=== PATIENT | female | born 1945 | race Caucasian/White ===

== ENCOUNTER 2017-05-22 18:22 | Observation (INO) ==
[2017-05-22] MEDS ORDERED: Ipratropium/Albuterol Neb 3 ML IH ONE ×2 (18:59→22:07)
--- NOTE | 2017-05-22 19:09 | Emergency Department Note ---
Disposition Clinical Impression: Hypoxia, Shortness of breath Disposition: Admitted As Inpatient Condition: Good Referrals: Medina Larios DO [Primary Care Provider] - Forms: ED Satisfaction Letter SOB HPI - General Chief Complaint: ED Shortness of Breath/Dyspnea Stated Complaint: KRIS Time Seen by Provider: 05/22/17 18:26 Source: patient, EMS Limitations: no limitations Nursing Notes Reviewed: Yes Vital Signs Reviewed: Yes - History of Present Illness Patient presents for evaluation of shortness of breath. Patient was diagnosed with pneumonia one month ago. Patient states that she was given amoxicillin and inhaler with mild improvement. Patient has continued to have some baseline shortness of breath despite treatment. Patient had a procedure performed by podiatry yesterday. Patient states that prior to the surgery she had a chest x- ray done. The chest x-ray was reviewed by the primary care staff and she was called and told to schedule a follow-up appointment to discuss the results. Did not give her the results told her with any worsening shortness of breath to return to the emergency department. Patient states that she was feeling more short of breath after some minimal exertion and presents here today. Her symptoms have been progressively worse over the last month after she was treated with antibiotics and a albuterol inhaler. Patient no longer has the help peter all inhaler at home. Her cough is dry in nature. Nonproductive. Patient has not had fevers or chills. - Related Data Home Medications Medication Instructions Recorded Confirmed Ammonium Lactate [Farzaneh-Hydrolac] 1 appl TP BID 05/21/17 05/22/17 Buspirone HCl [Buspar] 15 mg PO TID 05/21/17 05/22/17 Cholecalciferol (Vitamin D3) 1,000 unit PO DAILY 05/21/17 05/22/17 [Vitamin D] Docusate Sodium [Dok] 100 mg PO DAILY PRN 05/21/17 05/22/17 FLUoxetine HCl [Fluoxetine HCl] 80 mg PO QAM 05/21/17 05/22/17 Fluticasone Propionate Nasal 1 spray NS DAILY 05/21/17 05/22/17 [Flonase] Furosemide [Lasix] 20 mg PO DAILY PRN 05/21/17 05/22/17 Gabapentin [Neurontin] 300 mg PO 0600,1200 05/21/17 05/22/17 Gabapentin [Neurontin] 600 mg PO 2100 05/21/17 05/22/17 LORazepam [Ativan] 0.5 mg PO TID 05/21/17 05/22/17 Lisinopril [Lisinopril] 2.5 mg PO DAILY 05/21/17 05/22/17 Loperamide [Imodium] 2 mg PO TID PRN 05/21/17 05/22/17 Loratadine [Claritin] 10 mg PO DAILY 05/21/17 05/22/17 Rickey/Poly/DEX Opth OINT [Maxitrol 1 appl OP TID 05/21/17 05/22/17 OPTH Oint] Nystatin [Nystatin] 1 appl TP BID 05/21/17 05/22/17 Pantoprazole Sodium 40 mg PO BID 05/21/17 05/22/17 Pentoxifylline [Pentoxifylline] 400 mg PO TID 05/21/17 05/22/17 Potassium Chloride [K-Tab ER] 20 meq PO BID 05/21/17 05/22/17 Promethazine [Phenergan] 25 mg PO BID PRN 05/21/17 05/22/17 Propylene Glycol/Peg 400 [Systane 1 drop OP QID PRN 05/21/17 05/22/17 Ultra 0.4-0.3% Eye Drp] Sodium Chloride [[place] Saline] 1 spr NS Q4H PRN 05/21/17 05/22/17 Triamcinolone Acet 0.1% OINT 1 appl TP BID 05/21/17 05/22/17 [Kenalog] Vitamin B Complex [B Complex] 1 tab PO DAILY 05/21/17 05/22/17 cephALEXin [Keflex] 500 mg PO BID 05/21/17 05/22/17 diazePAM [Valium] 2 mg PO DAILY PRN 05/21/17 05/22/17 predniSONE [PredniSONE] 3 mg PO 0600 05/21/17 05/22/17 risperiDONE [RisperDAL] 3 mg PO 2100 05/21/17 05/22/17 Docusate [Colace] 100 mg PO 0600 05/22/17 05/22/17 Guaifenesin [Mucinex] 600 mg PO BID PRN 05/22/17 05/22/17 Previous Rx's Medication Instructions Recorded HYDROcodone/Acet 5/325 mg [[place] 1 tab PO Q6H PRN #14 tab 05/21/17 5-325 mg] Allergies Allergy/AdvReac Type Severity Reaction Status Date / Time aspirin Allergy Nausea Verified 05/21/17 11:29 levofloxacin [From Levaquin] Allergy Itching Verified 05/21/17 11:29 ibuprofen AdvReac Nausea Verified 05/21/17 11:29 Review of Systems: CONSTITUTIONAL: No weight loss, fever, chills, weakness or fatigue. HEENT: Eyes: No visual changes. Ears, Nose, Throat: No hearing loss, difficulty talking or unable to swallow. SKIN: No rash or itching. CARDIOVASCULAR: No chest pain, chest pressure or chest discomfort. No palpitations or edema. RESPIRATORY: Shortness of breath and cough GASTROINTESTINAL: No anorexia, nausea, vomiting or diarrhea. No abdominal pain or blood. GENITOURINARY: No burning on urination or hematuria. NEUROLOGICAL: No headache, dizziness, syncope, paralysis, ataxia, numbness or tingling in the extremities. No change in bowel or bladder control. MUSCULOSKELETAL: No muscle pain, back pain, joint pain or stiffness. Past Medical History - Past Medical History Medical history: Reports: hyperlipidemia, other Surgical history: Reports: appendectomy, hysterectomy Psychiatric history: Reports: bipolar - Social History Smoking Status: Never smoker Smokeless Tobacco Status: No Alcohol use: Reports: none Drug use: Reports: none Physical Exam General appearance: NAD, conversant Eyes: anicteric sclerae, moist conjunctivae; PERRL HENT: Atraumatic; oropharynx clear with moist mucous membranes and no mucosal ulcerations Neck: Normal inspection; Trachea midline; FROM, supple Lungs: Decreased bilaterally CV: RRR, no MRGs Abdomen: Soft, non-tender; no rebound or gaurding Extremities: No peripheral edema or extremity lymphadenopathy Skin: Normal temperature; no rash, ulcers or lesions Psych: Appropriate mood and affect Neuro: alert and oriented to person, place and time - General Limitations: no limitations General appearance: alert, in no apparent distress Course - Reevaluation(s) Reevaluation #1: Patient was a difficult IV stick. Patient did have an ultrasound IV placed. D- dimer elevated. CTA negative. Patient continues to have respiratory distress with minimal exertion. 90% on room air without oxygen while just resting in bed. The patient will need to be admitted for further evaluation of hypoxia. - Consultations Consultation #1: Case discussed with Dr. Johns. Pt accepted for admission. Vital Signs Temperature 98.9 F 05/22/17 18:25 Pulse Rate 74 05/22/17 18:25 Respiratory Rate 12 05/22/17 18:25 Blood Pressure 141/56 05/22/17 18:25 O2 Sat by Pulse Oximetry 94 05/22/17 18:25 Temperature 98.9 F 05/22/17 18:25 Pulse Rate 76 05/22/17 20:48 Respiratory Rate 18 05/22/17 22:39 Blood Pressure 148/96 05/22/17 20:48 O2 Sat by Pulse Oximetry 95 05/22/17 22:39 Oxygen Delivery Oxygen Delivery Nasal Cannula Shortness of Breath/Dyspnea - Lab Data Result diagrams: 05/22/17 20:29 05/22/17 20:29 Lab Results 05/22/17 05/22/17 05/22/17 Range/Units 20:29 20:29 20:29 WBC 10.1 (4.3-11.1) K/mcL RBC 4.40 (3.82-4.97) M/mcL Hgb 12.7 (11.5-15.4) g/dL Hct 39.4 (35.3-44.9) % MCV 89.5 (83.0-100.0) fL MCH 28.9 (28.0-33.3) pg MCHC 32.2 (31.6-35.5) g/dL RDW 12.6 (11.5-14.5) % Plt Count 169 (140-400) K/mcL MPV 9.3 L (9.4-12.4) fL Immature Gran % 0.4 (0-4) % Seg Neutrophils % 58.8 % Lymphocytes % 31.6 % Monocytes % 7.8 % Eosinophils % 1.1 % Basophils % 0.3 % Neutrophils # 6.0 (1.6-8.9) K/mcL Lymphocytes # 3.2 (0.6-4.6) K/mcL Monocytes # 0.8 (0.0-1.3) K/mcL Eosinophils # 0.1 (0.0-0.6) K/mcL Basophils # 0.0 (0.0-0.2) K/mcL D-Dimer (0-500) ng/mLFEU Sodium 140 (136-145) mEq/L Potassium 4.2 (3.5-4.5) mEq/L Chloride 103 (98-109) mEq/L Carbon Dioxide 28 (19-29) mEq/L BUN 12 (7-20) mg/dL Creatinine 0.83 (0.57-1.11) mg/dL Est GFR ( Amer) > 60 (> 60) Est GFR (Non-Af Amer) > 60 (> 60) BUN/Creatinine Ratio 14 (6-26) Glucose 109 H (70-99) mg/dL Calculated Osmolality 290 (280-300) Calcium 9.4 (8.6-10.8) mg/dL Troponin I 0.01 (0-0.03) ng/mL B-Natriuretic Peptide (0-100) pg/mL 05/22/17 05/22/17 Range/Units 20:29 20:29 WBC (4.3-11.1) K/mcL RBC (3.82-4.97) M/mcL Hgb (11.5-15.4) g/dL Hct (35.3-44.9) % MCV (83.0-100.0) fL MCH (28.0-33.3) pg MCHC (31.6-35.5) g/dL RDW (11.5-14.5) % Plt Count (140-400) K/mcL MPV (9.4-12.4) fL Immature Gran % (0-4) % Seg Neutrophils % % Lymphocytes % % Monocytes % % Eosinophils % % Basophils % % Neutrophils # (1.6-8.9) K/mcL Lymphocytes # (0.6-4.6) K/mcL Monocytes # (0.0-1.3) K/mcL Eosinophils # (0.0-0.6) K/mcL Basophils # (0.0-0.2) K/mcL D-Dimer 863 H (0-500) ng/mLFEU Sodium (136-145) mEq/L Potassium (3.5-4.5) mEq/L Chloride (98-109) mEq/L Carbon Dioxide (19-29) mEq/L BUN (7-20) mg/dL Creatinine (0.57-1.11) mg/dL Est GFR ( Amer) (> 60) Est GFR (Non-Af Amer) (> 60) BUN/Creatinine Ratio (6-26) Glucose (70-99) mg/dL Calculated Osmolality (280-300) Calcium (8.6-10.8) mg/dL Troponin I (0-0.03) ng/mL B-Natriuretic Peptide 17 (0-100) pg/mL Attestation Statement - Attestation Attestation: I, Daniel Drew DO, examined this patient [id number] and my medical decision-making was reviewed with Dr. Richar Hart, Resident Physician. I agree with the documented findings, disposition and treatment plan as described except to the extent set forth below. Please see my progress notes for details. 72-year-old female presents emergency room from home with increased work of breathing shortness of breath and oxygen requirement. Patient had foot surgery performed yesterday and since then has had persistently worsening shortness of breath. Patient does not have any acute signs of respiratory failure. She is using oxygen at this time of stabilization the pulse ox but does feel better with oxygen, typically she does not require this. Vital signs otherwise unremarkable except for borderline tachycardia. Lungs are clear heart is regular abdomen is soft nontender nondistended with no guarding no rigidity. Lower extremities do not show any acute signs of pitting edema. Right foot is in a boot at this time it has been less than 24 hours. No acute signs of redness or irritation. Low clinical concern for deep venous thrombosis, pneumonia, pulmonary infiltrate or infection this point. There is concern for possibility of pulmonary emboli versus other underlying etiology. Patient was contacted from the PCPs office today saying that she had something abnormal on the chest x-ray need to come the emergency room for evaluation. No other concerns or issues noted this time. Patient is otherwise stable. See detailed documentation of physical exam, medical intervention, medical decision-making and disposition of the resident physician's note.
[2017-05-22 20:39] LABS: Basophils % 0.3 %; Eosinophils # 0.1 K/mcL (0.0-0.6); Eosinophils % 1.1 %; Hematocrit 39.4 % (35.3-44.9); Hemoglobin 12.7 g/dL (11.5-15.4); Immature Granulocytes % 0.4 % (0-4); Lymphocytes # 3.2 K/mcL (0.6-4.6); Lymphocytes % 31.6 %; Mean Corpuscular HGB Conc 32.2 g/dL (31.6-35.5); Mean Corpuscular Hemoglobin 28.9 pg (28.0-33.3); Mean Corpuscular Volume 89.5 fL (83.0-100.0); Mean Platelet Volume 9.3 fL (9.4-12.4); Monocytes # 0.8 K/mcL (0.0-1.3); Monocytes % 7.8 %; Platelet Count 169 K/mcL (140-400); Red Cell Distribution Width 12.6 % (11.5-14.5); Segmented Neutrophils % 58.8 %
[2017-05-22 20:50] LABS: BUN/Creatinine Ratio 14 (6-26); Blood Urea Nitrogen 12 mg/dL (7-20); Calcium 9.4 mg/dL (8.6-10.8); Carbon Dioxide 28 mEq/L (19-29); Chloride 103 mEq/L (98-109); Glucose 109 mg/dL (70-99); Osmolality,Calculated 290 (280-300); Potassium 4.2 mEq/L (3.5-4.5); Sodium 140 mEq/L (136-145); eGFR For African Americans > 60 (> 60); eGFR For Non-African Americans > 60 (> 60)
[2017-05-22] MEDS ORDERED: methylPREDNISolone 125 MG/2 ML VIAL IVP ONE (22:08)
[2017-05-23] MEDS ORDERED: Artificial Tears SOLN 15 ML BOTTLE OP PRN (02:23)
[2017-05-23] MEDS ORDERED: Furosemide 20 MG TABLET PO PRN (02:23)
[2017-05-23] MEDS ORDERED: *HR* HYDROcodone/Acet 5/325 mg TABLET PO PRN (02:23)
--- NOTE | 2017-05-23 02:32 | Internal Med History&Physical ---
Date of Encounter: 05/23/17 Time of Encounter: 02:30 Assessment and Plan (1) Shortness of breath Current visit: Yes Status: Acute Patient presents with shortness of breath cough etiology unclear may be related to acute bronchitis versus BJ inhibitor therapy. Will discontinue lisinopril and see response. We will give as needed nebulizer treatments. There is no evidence of pneumonia or pulmonary embolism on CT scan. (2) S/P foot surgery, right Current visit: Yes Status: Acute Patient just had surgery for removal of implant from right great toe. She is on Keflex, will continue. Internal Medicine - H&P: HPI Chief complaint: sob History of present illness: Ms. Perez is a 72 year old female presents an emergency room today with a main component of shortness of breath. Patient mentioned that over the past month she has been having nonproductive cough and shortness of breath with less than ordinary exertion she denies any fevers chills mention that she has been treated with antibiotics amoxicillin is currently on Keflex after foot surgery she had yesterday. She denies any improvement in her symptoms. Seeking to have performed an emergency room showed no evidence of pneumonia or pulmonary embolism. She has been admitted to hospital for further evaluation. Patient mentioned that her cough is dry. She denies any increased sputum production fever or chills. She denies any chest wheezing. Patient never smoke. No chest pain. Past Med Surg Social Fam HX - Past Medical History Medical history: GERD, hyperlipidemia, hypertension, peripheral artery disease, other Psychiatric history: bipolar - Past Surgical History Surgical History: appendectomy, cholecystectomy, hysterectomy, other - Social History Smoking Status: Never smoker Smokeless Tobacco Status: No Alcohol use: none Drug use: none - Family History Mother Hx Family Respiratory Disorders: Yes (COPD) Father Hx Family Cardiac Disorders: Yes (Pacemaker) Hx Family Respiratory Disorders: Yes (COPD) Internal Medicine - H&P: Meds Ammonium Lactate [Farzaneh-Hydrolac] 1 appl TP BID 05/21/17 [History] Buspirone HCl [Buspar] 15 mg PO TID 05/21/17 [History] Cholecalciferol (Vitamin D3) [Vitamin D] 1,000 unit PO DAILY 05/21/17 [History] Docusate Sodium [Dok] 100 mg PO DAILY PRN 05/21/17 [History] FLUoxetine HCl [Fluoxetine HCl] 80 mg PO QAM 05/21/17 [History] Fluticasone Propionate Nasal [Flonase] 1 spray NS DAILY 05/21/17 [History] Furosemide [Lasix] 20 mg PO DAILY PRN 05/21/17 [History] Gabapentin [Neurontin] 300 mg PO 0600,1200 05/21/17 [History] Gabapentin [Neurontin] 600 mg PO 2100 05/21/17 [History] HYDROcodone/Acet 5/325 mg [[place] 5-325 mg] 1 tab PO Q6H PRN #14 tab 05/21/17 [Rx ] LORazepam [Ativan] 0.5 mg PO TID 05/21/17 [History] Lisinopril [Lisinopril] 2.5 mg PO DAILY 05/21/17 [History] Loperamide [Imodium] 2 mg PO TID PRN 05/21/17 [History] Loratadine [Claritin] 10 mg PO DAILY 05/21/17 [History] Rickey/Poly/DEX Opth OINT [Maxitrol OPTH Oint] 1 appl OP TID 05/21/17 [History] Nystatin [Nystatin] 1 appl TP BID 05/21/17 [History] Pantoprazole Sodium 40 mg PO BID 05/21/17 [History] Pentoxifylline [Pentoxifylline] 400 mg PO TID 05/21/17 [History] Potassium Chloride [K-Tab ER] 20 meq PO BID 05/21/17 [History] Promethazine [Phenergan] 25 mg PO BID PRN 05/21/17 [History] Propylene Glycol/Peg 400 [Systane Ultra 0.4-0.3% Eye Drp] 1 drop OP QID PRN 03/29 [History] Sodium Chloride [[place] Saline] 1 spr NS Q4H PRN 05/21/17 [History] Triamcinolone Acet 0.1% OINT [Kenalog] 1 appl TP BID 05/21/17 [History] Vitamin B Complex [B Complex] 1 tab PO DAILY 05/21/17 [History] cephALEXin [Keflex] 500 mg PO BID 05/21/17 [History] diazePAM [Valium] 2 mg PO DAILY PRN 05/21/17 [History] predniSONE [PredniSONE] 3 mg PO 0600 05/21/17 [History] risperiDONE [RisperDAL] 3 mg PO 2100 05/21/17 [History] Docusate [Colace] 100 mg PO 0600 05/22/17 [History] Guaifenesin [Mucinex] 600 mg PO BID PRN 05/22/17 [History] 3 Allergy/AdvReac Type Severity Reaction Status Date / Time aspirin Allergy Nausea Verified 05/21/17 11:29 levofloxacin [From Levaquin] Allergy Itching Verified 05/21/17 11:29 ibuprofen AdvReac Nausea Verified 05/21/17 11:29 All Systems PM: A 10-system review of systems was performed and is negative for pertinent findings except as documented above in the HPI. Review of systems: 10 point review of systems is negative except for HPI - Constitutional Vitals: Temp Pulse Resp BP Pulse Ox 98.9 F 84 16 126/66 93 05/23/17 00:02 05/23/17 00:02 05/23/17 00:02 05/23/17 00:02 05/23/17 00:02 Exam: General: Patient is A&O X3 Cardiac: normal S1, S2, no additional sounds or murmurs Chest: Clear to auscultation bilaterally Abdomen: soft, nontender, non distended, normal BS. Neuro: No focal deficits LE: no swelling Internal Med - H&P Results - Labs CBC & Chem 7: 05/22/17 20:29 05/22/17 20:29
[2017-05-23] MEDS ORDERED: Furosemide 20 MG/2 ML VIAL IVP ONE (02:43)
[2017-05-23 04:32] LABS: BUN/Creatinine Ratio 13 (6-26); Blood Urea Nitrogen 13 mg/dL (7-20); Calcium 9.3 mg/dL (8.6-10.8); Carbon Dioxide 22 mEq/L (19-29); Chloride 102 mEq/L (98-109); Creatine Kinase 97 Units/L (29-168); Glucose 229 mg/dL (70-99); Magnesium 1.7 mg/dL (1.6-2.6); Osmolality,Calculated 295 (280-300); Potassium 4.2 mEq/L (3.5-4.5); Sodium 139 mEq/L (136-145); eGFR For African Americans > 60 (> 60); eGFR For Non-African Americans 57 (> 60)
[2017-05-23 04:53] LABS: Basophils % 0.2 %; Eosinophils % 0.1 %; Hematocrit 38.8 % (35.3-44.9); Hemoglobin 12.3 g/dL (11.5-15.4); Immature Granulocytes % 0.4 % (0-4); Lymphocytes # 0.6 K/mcL (0.6-4.6); Lymphocytes % 6.2 %; Mean Corpuscular HGB Conc 31.7 g/dL (31.6-35.5); Mean Corpuscular Hemoglobin 28.3 pg (28.0-33.3); Mean Corpuscular Volume 89.4 fL (83.0-100.0); Mean Platelet Volume 10.1 fL (9.4-12.4); Monocytes # 0.1 K/mcL (0.0-1.3); Monocytes % 1.1 %; Neutrophils # 9.3 K/mcL (1.6-8.9); Platelet Count 168 K/mcL (140-400); Red Blood Count 4.34 M/mcL (3.82-4.97); Red Cell Distribution Width 12.7 % (11.5-14.5)
[2017-05-23] MEDS: *HR* Heparin 5,000 UNIT/ML VIAL SQ SCH ×3 (05:33→20:34)
[2017-05-23] MEDS: Gabapentin 300 MG CAPSULE PO SCH ×3 (05:33→20:32)
[2017-05-23] MEDS: predniSONE 1 MG TABLET PO SCH (05:33)
[2017-05-23] MEDS: Fluticasone Propionate Nasal 50 MCG/SPRAY BOTTLE NS SCH (10:32)
[2017-05-23] MEDS: cephALEXin 500 MG CAPSULE PO SCH ×2 (10:32→20:33)
[2017-05-23] MEDS: FLUoxetine 20 MG CAPSULE PO SCH (10:32)
[2017-05-23] MEDS: *HR* LORazepam 0.5 MG TABLET PO SCH ×3 (10:32→20:34)
[2017-05-23] MEDS: Loratadine 10 MG TABLET PO SCH (10:32)
[2017-05-23] MEDS: Nystatin POWDER 30 GM BOTTLE TP SCH ×2 (10:33→20:34)
--- NOTE | 2017-05-23 11:24 | Podiatry Consult Note ---
Date of Encounter: 05/23/17 Time of Encounter: 10:25 Assessment and Plan (1) S/P foot surgery, right Current visit: Yes Status: Acute no active bleeding from right hallux. there are no signs of infection. no wound dehiscence. sutures are intact. sterile bandage reapplied and toe strapped to reduce deformity. keep follow up appt as scheduled. History of Present Illness HPI: Ms. Perez is a 72 year old female who is admitted with SOB. She says she underwent surgery on 05/[address] Garza to remove a screw and try to fix the position of her big toe. She says she only walks on it in the cam walker boot. She denies f/c/n/v. Consulted for evlauation of the right hallux which has a bandage and bloody drainage on the bandage. Past Med Surg Social Fam HX - Past Medical History Medical history: GERD, hyperlipidemia, hypertension, peripheral artery disease, other Psychiatric history: bipolar - Past Surgical History Surgical History: appendectomy, cholecystectomy, hysterectomy, other - Social History Smoking Status: Never smoker Smokeless Tobacco Status: No Alcohol use: none Drug use: none - Family History Mother Hx Family Respiratory Disorders: Yes (COPD) Father Hx Family Cardiac Disorders: Yes (Pacemaker) Hx Family Respiratory Disorders: Yes (COPD) Medications and Allergies Ammonium Lactate [Farzaneh-Hydrolac] 1 appl TP BID 05/21/17 [History] Buspirone HCl [Buspar] 15 mg PO TID 05/21/17 [History] Cholecalciferol (Vitamin D3) [Vitamin D] 1,000 unit PO DAILY 05/21/17 [History] Docusate Sodium [Dok] 100 mg PO DAILY PRN 05/21/17 [History] FLUoxetine HCl [Fluoxetine HCl] 80 mg PO QAM 05/21/17 [History] Fluticasone Propionate Nasal [Flonase] 1 spray NS DAILY 05/21/17 [History] Furosemide [Lasix] 20 mg PO DAILY PRN 05/21/17 [History] Gabapentin [Neurontin] 300 mg PO 0600,1200 05/21/17 [History] Gabapentin [Neurontin] 600 mg PO 2100 05/21/17 [History] HYDROcodone/Acet 5/325 mg [[place] 5-325 mg] 1 tab PO Q6H PRN #14 tab 05/21/17 [Rx ] LORazepam [Ativan] 0.5 mg PO TID 05/21/17 [History] Lisinopril [Lisinopril] 2.5 mg PO DAILY 05/21/17 [History] Loperamide [Imodium] 2 mg PO TID PRN 05/21/17 [History] Loratadine [Claritin] 10 mg PO DAILY 05/21/17 [History] Rickey/Poly/DEX Opth OINT [Maxitrol OPTH Oint] 1 appl OP TID 05/21/17 [History] Nystatin [Nystatin] 1 appl TP BID 05/21/17 [History] Pantoprazole Sodium 40 mg PO BID 05/21/17 [History] Pentoxifylline [Pentoxifylline] 400 mg PO TID 05/21/17 [History] Potassium Chloride [K-Tab ER] 20 meq PO BID 05/21/17 [History] Promethazine [Phenergan] 25 mg PO BID PRN 05/21/17 [History] Propylene Glycol/Peg 400 [Syst[place] Ultra 0.4-0.3% Eye Drp] 1 drop OP QID PRN 03/29 [History] Sodium Chloride [[place] Saline] 1 spr NS Q4H PRN 05/21/17 [History] Triamcinolone Acet 0.1% OINT [Kenalog] 1 appl TP BID 05/21/17 [History] Vitamin B Complex [B Complex] 1 tab PO DAILY 05/21/17 [History] cephALEXin [Keflex] 500 mg PO BID 05/21/17 [History] diazePAM [Valium] 2 mg PO DAILY PRN 05/21/17 [History] predniSONE [PredniSONE] 3 mg PO 0600 05/21/17 [History] risperiDONE [RisperDAL] 3 mg PO 2100 05/21/17 [History] Docusate [Colace] 100 mg PO 0600 05/22/17 [History] Guaifenesin [Mucinex] 600 mg PO BID PRN 05/22/17 [History] 3 Allergy/AdvReac Type Severity Reaction Status Date / Time aspirin Allergy Nausea Verified 05/21/17 11:29 levofloxacin [From Levaquin] Allergy Itching Verified 05/21/17 11:29 ibuprofen AdvReac Nausea Verified 05/21/17 11:29 All Systems Reviewed: A 10-system review of systems was performed and is negative for pertinent findings except as documented above in the HPI. - Constitutional Constitutional: no fever(s) - Cardiovascular Cardiovascular: dyspnea, no chest pain - Respiratory Respiratory: dyspnea - Musculoskeletal Musculoskeletal: numbness Physical Exam - Constitutional Vitals: Temp Pulse Resp BP Pulse Ox 98.5 F 75 18 122/76 92 05/23/17 08:11 05/23/17 08:11 05/23/17 08:11 05/23/17 08:11 05/23/17 08:11 Exam: serosanguinous drainage on bandage. right hallux is warm to touch. sutures are intact. there is no active bleeding. there is no fluctuance or purulence. there is no ascending erythema. mild edema of the right hallux. Results - Labs Result Diagrams: 05/23/17 03:27 05/23/17 03:27 Labs: Abnormal lab results Neutrophils # 9.3 K/mcL (1.6-8.9) H 05/23/17 03:27 D-Dimer 863 ng/mLFEU (0-500) H 05/22/17 20:29 Est GFR (Non-Af Amer) 57 (> 60) L 05/23/17 03:27 Glucose 229 mg/dL (70-99) H 05/23/17 03:27 H & H 05/23/17 Range/Units 03:27 Hgb 12.3 (11.5-15.4) g/dL Hct 38.8 (35.3-44.9) % All other labs normal. Consult Discharge Plan - Plan Referrals: Medina Larios DO [Primary Care Provider] -
--- NOTE | 2017-05-23 17:37 | Event Note ---
Date of Encounter: 05/23/17 Time of Encounter: 15:20 Patient was seen and assessed at bedside at 1505. She reports that she has been having shortness of breath for "a while." She reports shortness of breath for at least 2 months and states it is been getting worse. She reports initially the chest pain was only with exertion, but as it became worse she became short of breath even at rest. The chest x-ray shows no acute abnormality. Chest CTA shows no evidence of PE or acute pulmonary abnormality. Patient had an elevated dimer in the emergency department was 863. Patient's troponins were negative 3. BNP is only 17. She had a stress test 03/31/2017 that was negative for ischemia or infarct of the gated EF of greater than 70%. Patient appears to be in no distress lungs are clear and diminished throughout. She does not have any peripheral edema above her normal, right foot is in a walking boot. Left lower extremity remains normal with palpable pedal pulses + 1 nonpitting edema. Patient is requiring 2-1/2 L of oxygen to maintain her sats at 92 or 93%. She has been afebrile with no tachycardia and normotensive. Will take an echocardiogram is out of line for tomorrow. Patient has been assessed by the dietary for her surgical wound to her right foot. She is status post surgery with Dr. Garza to remove the screw from her right great toe. Cardiology change dressing today and recommends keeping scheduled appointment, as well as maintaining current antibiotics. Patient is alert and oriented, skin is pink warm and dry, respirations are unlabored with no wheezing, rhonchi, Rales, respiratory distress. S1 and S2 are heard with a regular rate and rhythm no gallops, clicks, murmurs. Abdomen is soft, obese and rounded, nontender with bowel sounds present. Extremities are as above. Plan is to watch patient overnight, evaluate echocardiogram in the morning, possible discharge if patient is improved. Continue telemetry, current medications, oxygen to maintain sats greater than 92%, vitals as ordered with pulse ox.
[2017-05-23] MEDS: RisperiDAL 3 MG TABLET PO SCH (20:33)
[2017-05-24] MEDS: *HR* Heparin 5,000 UNIT/ML VIAL SQ SCH ×3 (05:53→21:26)
[2017-05-24] MEDS: predniSONE 1 MG TABLET PO SCH (05:54)
[2017-05-24] MEDS: Gabapentin 300 MG CAPSULE PO SCH ×3 (05:54→21:25)
[2017-05-24] MEDS: Loratadine 10 MG TABLET PO SCH (08:10)
[2017-05-24] MEDS: cephALEXin 500 MG CAPSULE PO SCH ×2 (08:10→21:25)
[2017-05-24] MEDS: FLUoxetine 20 MG CAPSULE PO SCH (08:10)
[2017-05-24] MEDS: *HR* LORazepam 0.5 MG TABLET PO SCH ×3 (08:10→21:25)
[2017-05-24] MEDS: Nystatin POWDER 30 GM BOTTLE TP SCH (08:12)
[2017-05-24] MEDS: Fluticasone Propionate Nasal 50 MCG/SPRAY BOTTLE NS SCH (08:12)
--- NOTE | 2017-05-24 16:43 | Internal Med Progress Note ---
Date of Encounter: 05/24/17 Time of Encounter: 16:10 - Assessment and plan (1) Hypoxia Current Visit: Yes Status: Acute Assessment and plan: Pt is requiring supplemental 02 to maintain 02 sats > 92%. Sats drop to < 90% without 02 and pt qualified for 02 with sats 88% while walking. Pt has never used 02 previously. (2) Shortness of breath Current Visit: Yes Status: Acute Assessment and plan: Patient reports onset of shortness of breath approximately 2 months ago. She states initially it was only when she was up moving around. She said she did not tell anybody because she did not want to bother anyone. She reports that eventually became so bad that she was sleeping sitting up and she would become short of breath even while moving in the bed. Patient with recent history of pneumonia and was treated with amoxicillin and inhaler with minimal improvement. Prior to her recent foot surgery, she had a chest x-ray done and was told by primary care to schedule follow-up appointment to review the results with them. They did not give her the results of the phone and told her to follow up with emergency department if she was still short of breath. Chest x-ray on admission shows continued elevation of right hemidiaphragm, mild in degree. There are no acute focal infiltrates and no pneumothorax, no free air. Chest x-ray is negative for any acute abnormality. D-dimer was elevated emergency department, Patient had a chest CTA was negative for PE or any acute pulmonary abnormality. She has had no leukocytosis, fever, tachycardia. Is requiring 2 L of oxygen. Patient qualified for home O2 her 6 minute walk with sats dropping below 88% while ambulating. Patient reports that she feels better since admission and administration of O2. Echocardiogram has been ordered and is pending. Patient is euvolemic, lungs are clear and diminished throughout. Addition to O2 and telemetry, we have ordered a continuous pulse ox. She has DuoNeb scheduled every 4 hours and is taking prednisone 3 mg daily for unknown reason. Will increase to 20 mg daily. (3) S/P foot surgery, right Current Visit: Yes Status: Acute (4) DVT prophylaxis Current Visit: Yes Status: Acute - Time Spent With Patient less than 15 minutes - Subjective Interval history: Pt was seen and assessed at 1610. Pt is very pleasant, alert, oriented female, who reports increasing sob over the last 2 months. She states that it increased from just with exertion to when she would try to move in her bed. She denies cough, fever, chills, smoking history. She states that her parents were big smokers and that her siblings all have "lung problems" despite no smoking history. Pt qualified for 02 and states that since she has had the when she got here, she feels better. - Constitutional Vitals: Temp Pulse Resp BP Pulse Ox 99.8 F H 61 16 113/68 93 05/24/17 15:33 05/24/17 15:33 05/24/17 15:33 05/24/17 15:33 05/24/17 15:33 General appearance: Present: cooperative, A&O X 3, pleasant, no acute distress, answers questions appropriately - Head Head exam: Present: atraumatic, normal inspection, normocephalic - Eye Eye exam: Present: normal appearance, PERRL, conjuntiva pink, sclera anicteric - Neck Neck exam general surgery: Present: normal inspection, supple, trachea midline. Absent: lymphadenopathy, tenderness - Respiratory Respiratory exam: Present: decreased breath sounds, CTAB. Absent: accessory muscle use, chest wall tenderness, rales, respiratory distress, rhonchi, wheezes - Cardiovascular Cardiovascular exam: Present: RRR, +S1, +S2. Absent: diastolic murmur, gallop, rubs, systolic murmur - GI/Abdominal GI/Abdominal exam: Present: distended, normal bowel sounds, soft. Absent: hepatomegaly, tenderness - Extremities Exam Extremities exam: Present: normal capillary refill, warm, radial pulses palpable and symmetrical. Absent: calf tenderness, cyanotic, pedal edema, tenderness - Neurological Exam Neurological exam: Present: alert, oriented X3, no focal deficits. Absent: facial droop, speech deficit - Skin Skin exam: Present: dry, intact, normal color, warm. Absent: rash Internal Medicine: Result - Labs CBC & Chem 7: 05/23/17 03:27 05/23/17 03:27 - ABG Interpretation ABG results: PT/INR, D-dimer D-Dimer 863 ng/mLFEU (0-500) H 05/22/17 20:29 Consult Discharge Plan - Plan Referrals: Medina Larios DO [Primary Care Provider] -
--- NOTE | 2017-05-24 17:44 | Electrocardiograph Report ---
[address] [address] Test Date: 2017-05-22 Pat Name: Marisol Perez Department: 102 Room: 3B45 Gender: F Employment Specialist: Tmr : 1945 Requested By: Joey Hart Order Number: [id number] Reading MD: Rios Olsen MD Measurements Intervals [place] Rate: 72 P: 52 CO: 151 QRS: -16 QRSD: 91 T: 7 QT: 398 QTc: 422 Interpretive Statements SINUS RHYTHM BASELINE ARTIFACT COMPLICATES ACCURATE INTERPRETATION Electronically Signed On 05-24-2017 17:42:50 EST by Rios Olsen MD
[2017-05-24] MEDS: Ipratropium/Albuterol Neb 3 ML IH SCH ×2 (18:32→20:11)
[2017-05-24] MEDS: RisperiDAL 3 MG TABLET PO SCH (21:24)
[2017-05-25] MEDS: Ipratropium/Albuterol Neb 3 ML IH SCH ×5 (04:11→16:25)
[2017-05-25] MEDS: Nystatin POWDER 30 GM BOTTLE TP SCH ×2 (06:07→08:26)
[2017-05-25] MEDS: Gabapentin 300 MG CAPSULE PO SCH ×2 (06:11→11:17)
[2017-05-25] MEDS: *HR* Heparin 5,000 UNIT/ML VIAL SQ SCH ×2 (06:11→13:42)
[2017-05-25] MEDS: FLUoxetine 20 MG CAPSULE PO SCH (08:25)
[2017-05-25] MEDS: *HR* LORazepam 0.5 MG TABLET PO SCH ×2 (08:25→13:42)
[2017-05-25] MEDS: cephALEXin 500 MG CAPSULE PO SCH (08:25)
[2017-05-25] MEDS: Loratadine 10 MG TABLET PO SCH (08:25)
[2017-05-25] MEDS: Fluticasone Propionate Nasal 50 MCG/SPRAY BOTTLE NS SCH (08:26)
[2017-05-25] MEDS ORDERED: predniSONE 20 MG TABLET PO SCH (09:00)
[2017-05-25 11:29] VITALS: BP 106/55
--- NOTE | 2017-05-25 15:09 | Discharge Summary ---
Date of Encounter: 05/25/17 Time of Encounter: 09:45 - Discharge Diagnosis (1) Obesity hypoventilation syndrome Priority: Primary Status: Acute Comments: Patient reports onset of shortness of breath approximately 2 months ago. She states initially it was only when she was up moving around. She said she did not tell anybody because she did not want to bother anyone. She reports that eventually became so bad that she was sleeping sitting up and she would become short of breath even while moving in the bed. Patient with recent history of pneumonia and was treated with amoxicillin and inhaler with minimal improvement. Prior to her recent foot surgery, she had a chest x-ray done and was told by primary care to schedule follow-up appointment to review the results with them. They did not give her the results of the phone and told her to follow up with emergency department if she was still short of breath. Chest x-ray on admission shows continued elevation of right hemidiaphragm, mild in degree. There are no acute focal infiltrates and no pneumothorax, no free air. Chest x-ray is negative for any acute abnormality. D-dimer was elevated emergency department, Patient had a chest CTA was negative for PE or any acute pulmonary abnormality. She has had no leukocytosis, fever, tachycardia. Is requiring 2 L of oxygen. Patient qualified for home O2 her 6 minute walk with sats dropping below 88% while ambulating. Patient reports that she feels better since admission and administration of O2. Echocardiogram with LVEF of 60-65%, mild LV DD, no significant valvular dysfunction. Patient is euvolemic, lungs are clear and diminished throughout. Patient has become deconditioned and is requiring rehabilitation after discharge , likely cause of shortness of breath and hypoxia is obesity and deconditioning. (2) Hypoxia Priority: Primary Status: Acute Comments: Pt is requiring supplemental 02 to maintain 02 sats > 92%. Sats drop to < 90% without 02 and pt qualified for 02 with sats 88% while walking. Pt has never used 02 previously. (3) Shortness of breath Priority: Secondary Status: Acute Comments: Plan as above. (4) S/P foot surgery, right Priority: Secondary Status: Acute Comments: Patient with surgery to right foot 05/[address] Garza. Purposes surgery was to remove the screw try to fix the position of her right great toe. Boot worn at all times while she was here. She was seen by podiatry on 05/23. W[facility] care [facility] at [facility]. Keep follow-up appointment as scheduled. (5) Obesity (BMI 30-39.9) Priority: Secondary Status: Chronic Comments: Chronic. Continue home medications. (6) DVT prophylaxis Priority: Secondary Status: Acute Comments: Heparin subcutaneous. - Discharge Medications Home Medications: Ammonium Lactate [Farzaneh-Hydrolac] 1 appl TP BID 05/21/17 [History] Buspirone HCl [Buspar] 15 mg PO TID 05/21/17 [History] Cholecalciferol (Vitamin D3) [Vitamin D3] 1,000 unit PO DAILY 05/21/17 [History] Docusate Sodium [Dok] 100 mg PO DAILY PRN 05/21/17 [History] FLUoxetine HCl [Fluoxetine HCl] 80 mg PO QAM 05/21/17 [History] Fluticasone Propionate Nasal [Flonase] 1 spray NS DAILY 05/21/17 [History] Furosemide [Lasix] 20 mg PO DAILY PRN 05/21/17 [History] Gabapentin [Neurontin] 300 mg PO 0600,1200 05/21/17 [History] Gabapentin [Neurontin] 600 mg PO 2100 05/21/17 [History] HYDROcodone/Acet 5/325 mg [[place] 5-325 mg] 1 tab PO Q6H PRN #14 tab 05/21/17 [Rx ] LORazepam [Ativan] 0.5 mg PO TID 05/21/17 [History] Lisinopril 2.5 mg PO DAILY 05/21/17 [History] Loperamide [Imodium] 2 mg PO TID PRN 05/21/17 [History] Loratadine [Claritin] 10 mg PO DAILY 05/21/17 [History] Rickey/Poly/DEX Opth OINT [Maxitrol OPTH Oint] 1 appl OP TID 05/21/17 [History] Nystatin 1 appl TP BID 05/21/17 [History] Pantoprazole Sodium 40 mg PO BID 05/21/17 [History] Pentoxifylline 400 mg PO TID 05/21/17 [History] Potassium Chloride [K-Tab ER] 20 meq PO BID 05/21/17 [History] Promethazine [Phenergan] 25 mg PO BID PRN 05/21/17 [History] Propylene Glycol/Peg 400 [Systane Ultra 0.4-0.3% Eye Drp] 1 drop OP QID PRN 03/29 [History] Sodium Chloride [[place] Saline] 1 spr NS Q4H PRN 05/21/17 [History] Triamcinolone Acet 0.1% OINT [Kenalog] 1 appl TP BID 05/21/17 [History] Vitamin B Complex [B Complex] 1 tab PO DAILY 05/21/17 [History] cephALEXin [Keflex] 500 mg PO BID 05/21/17 [History] diazePAM [Valium] 2 mg PO DAILY PRN 05/21/17 [History] predniSONE [PredniSONE] 3 mg PO 0600 05/21/17 [History] risperiDONE [RisperDAL] 3 mg PO 2100 05/21/17 [History] Docusate [Colace] 100 mg PO 0600 05/22/17 [History] Guaifenesin [Mucinex] 600 mg PO BID PRN 05/22/17 [History] Allergies/Adverse Reactions: 3 Allergy/AdvReac Type Severity Reaction Status Date / Time aspirin Allergy Nausea Verified 05/21/17 11:29 levofloxacin [From Levaquin] Allergy Itching Verified 05/21/17 11:29 ibuprofen AdvReac Nausea Verified 05/21/17 11:29 Procedures/tests Complete & Pending: Procedures Performed prior 72 hours Category Date Time Status EV echocardiogram Routine Y 05/23/17 17:35 Completed Date of admission: 05/22/17 23:13 Primary care physician: Medina Larios DO Consults: 05/22/17 23:55 Consult to Pharmacy Picking Tech [CONS] Routine Reason for SW Consult: Discharge planning Discharging clinician: Talia Leblanc Anticipated date of discharge: 05/25/17 - Patient Status Disposition: Home, Self-Care Condition: Good Functional capacity at discharge: independent ambulation Overall status at discharge: patient is back to baseline - Discharge Instructions Follow Up With: Medina Larios DO [Primary Care Provider] - - Diet and Activity Activity: ambulate only with your walker, resume usual activities as tolerated Diet: advance to your usual diet Interval History: See assessment and plan per hospital course. Hospital course: Ms. Perez is a 72 year old female - Time Spent with Patient Total time spent providing and/or coordinating discharge services: Less than 30 minutes - Constitutional Vitals: Temp Pulse Resp BP Pulse Ox 97.5 F L 66 15 106/55 94 05/25/17 11:29 05/25/17 11:29 05/25/17 11:29 05/25/17 11:29 05/25/17 11:29 General appearance: Present: cooperative, A&O X 3, pleasant, no acute distress, answers questions appropriately - Head Head exam: Present: atraumatic, normal inspection, normocephalic - Eye Eye exam: Present: normal appearance, conjuntiva pink, sclera anicteric - Neck Neck exam general surgery: Present: supple, trachea midline. Absent: lymphadenopathy - Respiratory Respiratory exam: Present: decreased breath sounds, CTAB. Absent: accessory muscle use, chest wall tenderness, prolonged expiratory phase, rales, respiratory distress, rhonchi, stridor, wheezes - Cardiovascular Cardiovascular exam: Present: RRR, +S1, +S2. Absent: diastolic murmur, gallop, rubs, systolic murmur - GI/Abdominal GI/Abdominal exam: Present: distended, normal bowel sounds, soft, no peritoneal signs. Absent: tenderness - Extremities Exam Extremities exam: Present: warm, radial pulses palpable and symmetrical. Absent : calf tenderness, cyanotic, normal capillary refill, normal inspection, pedal edema - Neurological Exam Neurological exam: Present: CN II-XII intact, oriented X3, no focal deficits. Absent: facial droop, speech deficit - Skin Skin exam: Present: dry, intact, normal color, warm. Absent: rash
--- NOTE | 2017-05-25 15:30 | Physician Discharge Referral ---
ExtendedCare Referral Info Provider in Charge after Transfer: PCP Institutional Level of Care: Intermediate - Diagnosis (1) Obesity hypoventilation syndrome Priority: Primary Status: Acute (2) Hypoxia Priority: Secondary Status: Acute (3) Shortness of breath Priority: Secondary Status: Acute (4) S/P foot surgery, right Priority: Secondary Status: Acute (5) Obesity (BMI 30-39.9) Priority: Secondary Status: Chronic (6) DVT prophylaxis Priority: Secondary Status: Acute Prognosis: Good Aware of Diagnosis: Patient Aware of Prognosis: Patient - Transfer Medications Home Medications: Ammonium Lactate [Farzaneh-Hydrolac] 1 appl TP BID 05/21/17 [History] Buspirone HCl [Buspar] 15 mg PO TID 05/21/17 [History] Cholecalciferol (Vitamin D3) [Vitamin D3] 1,000 unit PO DAILY 05/21/17 [History] Docusate Sodium [Dok] 100 mg PO DAILY PRN 05/21/17 [History] FLUoxetine HCl [Fluoxetine HCl] 80 mg PO QAM 05/21/17 [History] Fluticasone Propionate Nasal [Flonase] 1 spray NS DAILY 05/21/17 [History] Furosemide [Lasix] 20 mg PO DAILY PRN 05/21/17 [History] Gabapentin [Neurontin] 300 mg PO 0600,1200 05/21/17 [History] Gabapentin [Neurontin] 600 mg PO 2100 05/21/17 [History] HYDROcodone/Acet 5/325 mg [[place] 5-325 mg] 1 tab PO Q6H PRN #14 tab 05/21/17 [Rx ] LORazepam [Ativan] 0.5 mg PO TID 05/21/17 [History] Lisinopril 2.5 mg PO DAILY 05/21/17 [History] Loperamide [Imodium] 2 mg PO TID PRN 05/21/17 [History] Loratadine [Claritin] 10 mg PO DAILY 05/21/17 [History] Rickey/Poly/DEX Opth OINT [Maxitrol OPTH Oint] 1 appl OP TID 05/21/17 [History] Nystatin 1 appl TP BID 05/21/17 [History] Pantoprazole Sodium 40 mg PO BID 05/21/17 [History] Pentoxifylline 400 mg PO TID 05/21/17 [History] Potassium Chloride [K-Tab ER] 20 meq PO BID 05/21/17 [History] Promethazine [Phenergan] 25 mg PO BID PRN 05/21/17 [History] Propylene Glycol/Peg 400 [Systane Ultra 0.4-0.3% Eye Drp] 1 drop OP QID PRN 03/29 [History] Sodium Chloride [[place] Saline] 1 spr NS Q4H PRN 05/21/17 [History] Triamcinolone Acet 0.1% OINT [Kenalog] 1 appl TP BID 05/21/17 [History] Vitamin B Complex [B Complex] 1 tab PO DAILY 05/21/17 [History] cephALEXin [Keflex] 500 mg PO BID 05/21/17 [History] diazePAM [Valium] 2 mg PO DAILY PRN 05/21/17 [History] predniSONE [PredniSONE] 3 mg PO 0600 05/21/17 [History] risperiDONE [RisperDAL] 3 mg PO 2100 05/21/17 [History] Docusate [Colace] 100 mg PO 0600 05/22/17 [History] Guaifenesin [Mucinex] 600 mg PO BID PRN 05/22/17 [History] Allergies/Adverse Reactions: 3 Allergy/AdvReac Type Severity Reaction Status Date / Time aspirin Allergy Nausea Verified 05/21/17 11:29 levofloxacin [From Levaquin] Allergy Itching Verified 05/21/17 11:29 ibuprofen AdvReac Nausea Verified 05/21/17 11:29 - Respiratory Orders Oxygen / L per min (02 2L via n/c.) Smoking Cessation: Smoking cessation has been advised. For more information, call the [place] Tobacco Quit Line at 3-116-AVPK-NOW. - Lab Orders Lab Orders: 2 Step Mantoux Test per State regulation, CBC, U/A, Jorge 17, CXR yearly - Ancillary Orders May use pressure relief devices daily prn, May consult with Dentist, Spanish Language Lecturer, Corporate Account Executive PRN - Mobility Orders Chair, Ambulate - Rehabiliation Orders Rehab Potential: Fair Rehab Orders: ROM Exercises, Evaluation for Physical Therapy, Evaluation for Occupational Therapy - Treatments Skin tear care topically daily PRN per policy, May check for fecal impaction rectally daily PRN, Fleet enema rectally every other day PRN cleansing purposes - Diet Orders No Added Salt (KRYSTLE), Cardiac CERTIFICATION: I certify that the transfer of the above named patient to an Extended Care Facility is necessary for the continuing treatment of the diagnosis listed. The above information is true and accurate reflection of patient's current condition. Confidential - Redisclosure prohibited without a patient's written consent.
[2017-05-25 19:49] LABS: CK-BB (CK isoenzymes) 0 % (0-0); CK-MB (CK isoenzymes) 0 % (0-4); CK-MM (CK-isoenzymes) 100 % (96-100)
[2017-05-26 07:19] LABS: CK Total (Ck Isoenzymes) 103 U/L (20-180)
[2017-05-28 01:40] LABS: CK-BB (CK isoenzymes) 0 % (0-0); CK-MB (CK isoenzymes) 0 % (0-4); CK-MM (CK-isoenzymes) 100 % (96-100)
[2017-05-28 08:13] LABS: CK Total (Ck Isoenzymes) 109 U/L (20-180)
== END 2017-05-25 18:09 | disposition home or self-care (01) ==
LOC: EMEROO 18:22 → 3BNU 18:22
PROVIDERS: ADMIT Hospitalist; ATTEND Registered Nurse

== ENCOUNTER 2020-02-22 15:07 | Inpatient (IN) ==
[2020-02-22] MEDS ORDERED: Piperacillin/Tazobactam 3.375 GM in 0.9 % Sodium Chloride Mini Bag 100 ML IVPB ONE (16:00)
[2020-02-22] MEDS ORDERED: Vancomycin 1,500 MG/265 ML IV.SOLN IVPB ONE (16:05)
[2020-02-22 17:01] LABS: Basophils % 0.3 %; Eosinophils # 0.1 K/mcL (0.0-0.6); Eosinophils % 0.9 %; Hematocrit 36.5 % (35.3-44.9); Hemoglobin 11.8 g/dL (11.5-15.4); Immature Granulocytes % 0.3 % (0-4); Lymphocytes # 1.4 K/mcL (0.6-4.6); Lymphocytes % 23.7 %; Mean Corpuscular HGB Conc 32.3 g/dL (31.6-35.5); Mean Corpuscular Hemoglobin 29.3 pg (28.0-33.3); Mean Corpuscular Volume 90.6 fL (83.0-100.0); Mean Platelet Volume 9.7 fL (9.4-12.4); Monocytes # 0.5 K/mcL (0.0-1.3); Monocytes % 8.5 %; Neutrophils # 3.8 K/mcL (1.6-8.9); Platelet Count 135 K/mcL (140-400); Red Blood Count 4.03 M/mcL (3.82-4.97); Red Cell Distribution Width 12.9 % (11.5-14.5); Segmented Neutrophils % 66.3 %; White Blood Count 5.8 K/mcL (4.3-11.1)
[2020-02-22 17:35] LABS: BUN/Creatinine Ratio 15 (6-26); Blood Urea Nitrogen 10 mg/dL (8-23); C-Reactive Protein < 5 mg/L (Less than 10); Calcium 8.9 mg/dL (8.6-10.3); Carbon Dioxide 25 mEq/L (23-29); Chloride 107 mEq/L (98-107); Glucose 134 mg/dL (70-105); Osmolality,Calculated 291 (280-300); Potassium 4.1 mEq/L (3.5-5.1); Sodium 140 mEq/L (136-145); eGFR For African Americans > 60 (> 60); eGFR For Non-African Americans > 60 (> 60)
[2020-02-22] MEDS ORDERED: Acetaminophen 325 MG TABLET PO PRN (17:52)
[2020-02-22] MEDS ORDERED: Naloxone 0.4 MG/ML INJ IVP PRN (17:52)
[2020-02-22] MEDS ORDERED: Loratadine 10 MG TABLET PO PRN (17:54)
[2020-02-22] MEDS ORDERED: Fluticasone Propionate Nasal 50 MCG/SPRAY BOTTLE NS PRN (17:54)
[2020-02-22] MEDS ORDERED: Artificial Tears SOLN 15 ML BOTTLE OP PRN (17:54)
[2020-02-22] MEDS ORDERED: Dextrose Gel 15 GM/37.5 ML TUBE PO PRN ×2 (18:17)
[2020-02-22] MEDS ORDERED: D5% in Water 1,000 ML IVC PRN (18:17)
[2020-02-22] MEDS ORDERED: *HR* Dextrose 50 % in Water (Vial) 50 ML VIAL IVP PRN (18:17)
[2020-02-22] MEDS: Ondansetron 4 MG/2 ML VIAL IVP PRN (19:34)
[2020-02-22] MEDS: *HR* HYDROcodone/Acet 5/325 mg TABLET PO PRN (19:35)
[2020-02-22] MEDS ORDERED: QUEtiapine Fumarate 25 MG TABLET PO SCH (21:00)
[2020-02-22] MEDS ORDERED: Melatonin 3 MG TABLET PO SCH (21:00)
[2020-02-22] MEDS ORDERED: Gabapentin 300 MG CAPSULE PO SCH (21:00)
[2020-02-22] MEDS: *HR* LORazepam 0.5 MG TABLET PO SCH (22:23)
[2020-02-22] MEDS ORDERED: Ringers Solution, Lactated 1,000 ML IVC SCH (23:59)
[2020-02-23 03:46] LABS: Basophils % 0.2 %; Eosinophils # 0.1 K/mcL (0.0-0.6); Eosinophils % 1.3 %; Hemoglobin 11.1 g/dL (11.5-15.4); Immature Granulocytes % 0.2 % (0-4); Lymphocytes # 1.6 K/mcL (0.6-4.6); Lymphocytes % 35.7 %; Mean Corpuscular HGB Conc 31.7 g/dL (31.6-35.5); Mean Corpuscular Hemoglobin 28.8 pg (28.0-33.3); Mean Corpuscular Volume 90.9 fL (83.0-100.0); Mean Platelet Volume 9.2 fL (9.4-12.4); Monocytes # 0.5 K/mcL (0.0-1.3); Neutrophils # 2.4 K/mcL (1.6-8.9); Platelet Count 121 K/mcL (140-400); Red Blood Count 3.85 M/mcL (3.82-4.97); Red Cell Distribution Width 13.2 % (11.5-14.5); Segmented Neutrophils % 51.6 %; White Blood Count 4.6 K/mcL (4.3-11.1)
[2020-02-23 03:51] LABS: Prothrombin Time 11.5 Seconds (9.4-12.1)
[2020-02-23 04:05] LABS: BUN/Creatinine Ratio 15 (6-26); Blood Urea Nitrogen 13 mg/dL (8-23); Calcium 8.5 mg/dL (8.6-10.3); Carbon Dioxide 30 mEq/L (23-29); Chloride 107 mEq/L (98-107); Glucose 108 mg/dL (70-105); Osmolality,Calculated 295 (280-300); Sodium 142 mEq/L (136-145); eGFR For African Americans > 60 (> 60); eGFR For Non-African Americans > 60 (> 60)
[2020-02-23] MEDS: *HR* Heparin 5,000 UNIT/ML VIAL SQ SCH ×2 (05:04→16:21)
[2020-02-23] MEDS: Gabapentin 300 MG CAPSULE PO SCH ×3 (05:05→21:49)
[2020-02-23] MEDS: Insulin LISPRO 300 UNITS/3 ML VIAL SQ SCH ×3 (07:41→15:24)
[2020-02-23] MEDS: *HR* HYDROcodone/Acet 5/325 mg TABLET PO PRN (08:12)
[2020-02-23] MEDS: *HR* LORazepam 0.5 MG TABLET PO SCH ×3 (08:12→21:49)
[2020-02-23] MEDS: Piperacillin/Tazobactam 3.375 GM in 0.9 % Sodium Chloride Mini Bag 100 ML IVPB SCH ×3 (08:13→15:23)
[2020-02-23] MEDS ORDERED: lisinopriL 5 MG TABLET PO SCH (09:00)
[2020-02-23] MEDS ORDERED: FLUoxetine 20 MG CAPSULE PO SCH (09:00)
[2020-02-23] MEDS ORDERED: Cholecalciferol (D-3) 1,000 UNIT (25MCG) TABLET PO SCH (09:00)
[2020-02-23] MEDS ORDERED: Isovue-370 500 ML BOTTLE IVP ONE (09:36)
[2020-02-23] MEDS: Vancomycin 1,250 MG/262.5 ML IV.SOLN IVPB SCH ×3 (09:59→22:33)
[2020-02-23] MEDS: Ondansetron 4 MG/2 ML VIAL IVP PRN (11:14)
[2020-02-23] MEDS ORDERED: *HR* Propofol 200 MG/20 ML VIAL IVP ONE (18:17)
[2020-02-23] MEDS ORDERED: Lidocaine -MPF 2% 2 ML VIAL ONE (18:17)
[2020-02-23] MEDS ORDERED: Dexamethasone 4 MG/ML VIAL ONE ×2 (18:17→18:26)
[2020-02-23] MEDS ORDERED: Ondansetron 4 MG/2 ML VIAL ONE (18:17)
[2020-02-23] MEDS ORDERED: *HR* OxyCODONE Immed Rel 5 MG TABLET PO PRN ×2 (18:24→20:18)
[2020-02-23] MEDS ORDERED: Ondansetron 4 MG/2 ML VIAL IVP ONE ×2 (18:24→20:18)
[2020-02-23] MEDS ORDERED: *HR* Promethazine 25 MG/ML VIAL IVP PRN ×2 (18:24→20:18)
[2020-02-23] MEDS ORDERED: *HR* FentaNYL (PF) 100 MCG/2 ML VIAL ONE (18:25)
[2020-02-23] MEDS ORDERED: Lidocaine 1% 0 ML ONE (18:31)
[2020-02-23] MEDS ORDERED: EPHEDrine 50 MG/ML VIAL ONE (18:52)
[2020-02-23] MEDS ORDERED: *HR* HYDROMORPHONE 2 MG/ML VIAL ONE (19:02)
[2020-02-23] MEDS: *HR* HYDROmorphone PF 0.5 MG/0.5 ML SYRINGE IVP PRN ×2 (19:35→19:50)
[2020-02-23] MEDS ORDERED: Artificial Tears SOLN 15 ML BOTTLE OP PRN (20:18)
[2020-02-23] MEDS ORDERED: *HR* Dextrose 50 % in Water (Vial) 50 ML VIAL IVP PRN (20:18)
[2020-02-23] MEDS ORDERED: D5% in Water 1,000 ML IVC PRN (20:18)
[2020-02-23] MEDS ORDERED: Dextrose Gel 15 GM/37.5 ML TUBE PO PRN ×2 (20:18)
[2020-02-23] MEDS ORDERED: Naloxone 0.4 MG/ML INJ IVP PRN (20:18)
[2020-02-23] MEDS ORDERED: Acetaminophen 325 MG TABLET PO PRN (20:18)
[2020-02-23] MEDS ORDERED: Loratadine 10 MG TABLET PO PRN (20:18)
[2020-02-23] MEDS ORDERED: Fluticasone Propionate Nasal 50 MCG/SPRAY BOTTLE NS PRN (20:18)
[2020-02-23] MEDS: Melatonin 3 MG TABLET PO SCH (21:48)
[2020-02-23] MEDS: QUEtiapine Fumarate 25 MG TABLET PO SCH (21:48)
[2020-02-24] MEDS: Piperacillin/Tazobactam 3.375 GM in 0.9 % Sodium Chloride Mini Bag 100 ML IVPB SCH ×4 (00:08→23:40)
[2020-02-24] MEDS: Gabapentin 300 MG CAPSULE PO SCH ×3 (04:33→21:41)
[2020-02-24] MEDS: *HR* Heparin 5,000 UNIT/ML VIAL SQ SCH ×2 (04:34→16:39)
[2020-02-24] MEDS: *HR* HYDROcodone/Acet 5/325 mg TABLET PO PRN (04:34)
[2020-02-24] MEDS: lisinopriL 5 MG TABLET PO SCH (09:18)
[2020-02-24] MEDS: Cholecalciferol (D-3) 1,000 UNIT (25MCG) TABLET PO SCH (09:18)
[2020-02-24] MEDS: *HR* LORazepam 0.5 MG TABLET PO SCH ×3 (09:18→21:42)
[2020-02-24] MEDS: FLUoxetine 20 MG CAPSULE PO SCH (09:18)
[2020-02-24] MEDS: Insulin LISPRO 300 UNITS/3 ML VIAL SQ SCH ×3 (09:27→17:12)
[2020-02-24] MEDS: Vancomycin 1,250 MG/262.5 ML IV.SOLN IVPB SCH ×2 (11:15→21:42)
[2020-02-24] MEDS: Ondansetron 4 MG/2 ML VIAL IVP PRN (18:28)
[2020-02-24] MEDS: QUEtiapine Fumarate 25 MG TABLET PO SCH (21:42)
[2020-02-24] MEDS: Melatonin 3 MG TABLET PO SCH (21:42)
[2020-02-25] MEDS: *HR* Heparin 5,000 UNIT/ML VIAL SQ SCH ×2 (05:57→17:38)
[2020-02-25] MEDS: Gabapentin 300 MG CAPSULE PO SCH ×3 (05:57→20:30)
[2020-02-25] MEDS: FLUoxetine 20 MG CAPSULE PO SCH (07:43)
[2020-02-25] MEDS: lisinopriL 5 MG TABLET PO SCH (07:44)
[2020-02-25] MEDS: *HR* LORazepam 0.5 MG TABLET PO SCH ×3 (07:44→20:29)
[2020-02-25] MEDS: Cholecalciferol (D-3) 1,000 UNIT (25MCG) TABLET PO SCH (07:44)
[2020-02-25] MEDS: Insulin LISPRO 300 UNITS/3 ML VIAL SQ SCH ×3 (07:45→16:06)
[2020-02-25] MEDS: Piperacillin/Tazobactam 3.375 GM in 0.9 % Sodium Chloride Mini Bag 100 ML IVPB SCH ×3 (07:45→23:58)
[2020-02-25] MEDS: Vancomycin 1,250 MG/262.5 ML IV.SOLN IVPB SCH ×2 (11:00→22:13)
[2020-02-25] MEDS ORDERED: *HR* HYDROmorphone 2 MG/ML SYRINGE IVP ONE (16:05)
[2020-02-25] MEDS: Melatonin 3 MG TABLET PO SCH (20:30)
[2020-02-25] MEDS: QUEtiapine Fumarate 25 MG TABLET PO SCH (20:31)
[2020-02-25] MEDS: *HR* HYDROcodone/Acet 5/325 mg TABLET PO PRN (22:13)
[2020-02-26] MEDS: *HR* Heparin 5,000 UNIT/ML VIAL SQ SCH ×2 (05:29→17:38)
[2020-02-26] MEDS: Gabapentin 300 MG CAPSULE PO SCH ×3 (05:40→21:26)
[2020-02-26] MEDS: Piperacillin/Tazobactam 3.375 GM in 0.9 % Sodium Chloride Mini Bag 100 ML IVPB SCH ×3 (07:40→23:48)
[2020-02-26] MEDS: lisinopriL 5 MG TABLET PO SCH (07:41)
[2020-02-26] MEDS: Cholecalciferol (D-3) 1,000 UNIT (25MCG) TABLET PO SCH (07:41)
[2020-02-26] MEDS: *HR* LORazepam 0.5 MG TABLET PO SCH ×3 (07:41→21:28)
[2020-02-26] MEDS: FLUoxetine 20 MG CAPSULE PO SCH (07:41)
[2020-02-26] MEDS: Insulin LISPRO 300 UNITS/3 ML VIAL SQ SCH ×3 (07:42→16:49)
[2020-02-26] MEDS: Vancomycin 1,250 MG/262.5 ML IV.SOLN IVPB SCH ×2 (09:55→21:28)
[2020-02-26] MEDS: QUEtiapine Fumarate 25 MG TABLET PO SCH (21:27)
[2020-02-26] MEDS: Melatonin 3 MG TABLET PO SCH (21:28)
[2020-02-27 04:32] LABS: Hematocrit 35.9 % (35.3-44.9); Hemoglobin 11.4 g/dL (11.5-15.4); Mean Corpuscular HGB Conc 31.8 g/dL (31.6-35.5); Mean Corpuscular Hemoglobin 28.6 pg (28.0-33.3); Mean Platelet Volume 9.3 fL (9.4-12.4); Platelet Count 128 K/mcL (140-400); Red Blood Count 3.99 M/mcL (3.82-4.97); Red Cell Distribution Width 12.8 % (11.5-14.5)
[2020-02-27 04:51] LABS: BUN/Creatinine Ratio 26 (6-26); Blood Urea Nitrogen 21 mg/dL (8-23); Carbon Dioxide 31 mEq/L (23-29); Chloride 103 mEq/L (98-107); Glucose 93 mg/dL (70-105); Osmolality,Calculated 293 (280-300); Potassium 3.8 mEq/L (3.5-5.1); Sodium 140 mEq/L (136-145); eGFR For African Americans > 60 (> 60); eGFR For Non-African Americans > 60 (> 60)
[2020-02-27] MEDS: Gabapentin 300 MG CAPSULE PO SCH ×3 (05:27→21:48)
[2020-02-27] MEDS: *HR* Heparin 5,000 UNIT/ML VIAL SQ SCH ×2 (05:28→17:10)
[2020-02-27] MEDS: Insulin LISPRO 300 UNITS/3 ML VIAL SQ SCH ×3 (08:07→17:07)
[2020-02-27] MEDS: FLUoxetine 20 MG CAPSULE PO SCH (08:20)
[2020-02-27] MEDS: *HR* LORazepam 0.5 MG TABLET PO SCH ×3 (08:20→21:48)
[2020-02-27] MEDS: Cholecalciferol (D-3) 1,000 UNIT (25MCG) TABLET PO SCH (08:20)
[2020-02-27] MEDS: lisinopriL 5 MG TABLET PO SCH (08:21)
[2020-02-27] MEDS: Piperacillin/Tazobactam 3.375 GM in 0.9 % Sodium Chloride Mini Bag 100 ML IVPB SCH ×3 (08:23→23:45)
[2020-02-27] MEDS: *HR* HYDROcodone/Acet 5/325 mg TABLET PO PRN ×2 (12:22→21:59)
[2020-02-27] MEDS: Ondansetron 4 MG/2 ML VIAL IVP PRN (16:00)
[2020-02-27] MEDS: QUEtiapine Fumarate 25 MG TABLET PO SCH (21:48)
[2020-02-27] MEDS: Melatonin 3 MG TABLET PO SCH (21:48)
[2020-02-28] MEDS: *HR* Heparin 5,000 UNIT/ML VIAL SQ SCH (05:53)
[2020-02-28] MEDS: Gabapentin 300 MG CAPSULE PO SCH (05:54)
[2020-02-28] MEDS: Insulin LISPRO 300 UNITS/3 ML VIAL SQ SCH ×2 (08:12→15:30)
[2020-02-28] MEDS: Piperacillin/Tazobactam 3.375 GM in 0.9 % Sodium Chloride Mini Bag 100 ML IVPB SCH (08:34)
[2020-02-28] MEDS: Cholecalciferol (D-3) 1,000 UNIT (25MCG) TABLET PO SCH (08:35)
[2020-02-28] MEDS: FLUoxetine 20 MG CAPSULE PO SCH (08:35)
[2020-02-28] MEDS: lisinopriL 5 MG TABLET PO SCH (08:35)
[2020-02-28] MEDS: *HR* LORazepam 0.5 MG TABLET PO SCH (08:35)
[2020-02-28 09:58] VITALS: BP 120/62
== END 2020-02-28 17:01 | disposition home or self-care (01) | DRG 478 ==
LOC: 3BNU 15:07 → EMEROOARM 15:07 → SUATTDRO 17:57 → 3BNU 18:39 → SUATTDRO 02-24 13:32 → 3ANU 02-27 20:04
PROVIDERS: ADMIT Student in an Organized Health Care Education/Training Program; ATTEND Internal Medicine

== ENCOUNTER 2021-08-31 15:26 | Inpatient (IN) ==
[2021-08-31] MEDS ORDERED: *HR* HYDROmorphone (PF) 1 MG/ML SYRINGE IVP ONE (16:08)
[2021-08-31 16:17] LABS: Basophils % 0.1 %; Eosinophils % 0.1 %; Hematocrit 37.1 % (35.3-44.9); Hemoglobin 12.2 g/dL (11.5-15.4); Immature Granulocytes % 0.2 % (0-4); Immature Platelets 1.9 % (1.1-6.1); Lymphocytes % 11.6 %; Mean Corpuscular HGB Conc 32.9 g/dL (31.6-35.5); Mean Corpuscular Hemoglobin 28.6 pg (28.0-33.3); Mean Corpuscular Volume 86.9 fL (83.0-100.0); Mean Platelet Volume 9.2 fL (9.4-12.4); Monocytes # 0.4 K/mcL (0.0-1.3); Monocytes % 4.5 %; Platelet Count 155 K/mcL (140-400); Red Blood Count 4.27 M/mcL (3.82-4.97); Red Cell Distribution Width 12.3 % (11.5-14.5); Segmented Neutrophils % 83.5 %; White Blood Count 8.4 K/mcL (4.3-11.1)
[2021-08-31 16:30] LABS: INR 1.1; Prothrombin Time 11.8 Seconds (9.4-12.1)
[2021-08-31 16:31] LABS: Alanine Aminotransferase 38 Units/L (7-52); Albumin 3.9 g/dL (3.5-5.7); Albumin/Globulin Ratio 1.5 (1.1-2.2); Alkaline Phosphatase 82 Units/L (34-104); Aspartate Amino Transferase 67 Units/L (13-39); BUN/Creatinine Ratio 20 (6-26); Bilirubin,Direct 0.1 mg/dL (0.0-0.2); Bilirubin,Indirect 0.6 mg/dL (0.0-1.0); Bilirubin,Total 0.7 mg/dL (0.3-1.0); Blood Urea Nitrogen 16 mg/dL (8-23); Calcium 9.4 mg/dL (8.6-10.3); Carbon Dioxide 28 mEq/L (23-29); Chloride 102 mEq/L (98-107); Globulin 2.6 g/dL (2.4-3.5); Glucose 140 mg/dL (70-105); Osmolality,Calculated 293 (280-300); Potassium 4.4 mEq/L (3.5-5.1); Sodium 140 mEq/L (136-145); Total Protein 6.5 g/dL (6.4-8.9); eGFR For African Americans > 60 (> 60); eGFR For Non-African Americans > 60 (> 60)
[2021-08-31 16:32] LABS: Activated Partial Thrombo Time 28.9 Seconds (26.0-36.0)
[2021-08-31] MEDS ORDERED: Ondansetron 4 MG/2 ML VIAL IVP PRN (16:46)
[2021-08-31] MEDS ORDERED: Naloxone 0.4 MG/ML INJ IVP PRN (16:46)
[2021-08-31] MEDS ORDERED: Acetaminophen 325 MG TABLET PO PRN (16:46)
[2021-08-31] MEDS ORDERED: Fluticasone Propionate Nasal 50 MCG/SPRAY BOTTLE NS PRN (17:28)
[2021-08-31] MEDS ORDERED: D5% in Water 1,000 ML IVC PRN (17:31)
[2021-08-31] MEDS ORDERED: *HR* Dextrose 50 % in Water (Syg) 50 ML SYRINGE IVP PRN (17:31)
[2021-08-31] MEDS ORDERED: Dextrose Gel 15 GM/37.5 ML TUBE PO PRN ×2 (17:31)
[2021-08-31] MEDS ORDERED: Saline Nasal Spray 44 ML BOTTLE NS PRN (17:38)
[2021-08-31] MEDS: QUEtiapine Fumarate 25 MG TABLET PO SCH (20:17)
[2021-08-31] MEDS: *HR* LORazepam 0.5 MG TABLET PO SCH (20:17)
[2021-08-31] MEDS: Melatonin 3 MG TABLET PO SCH (20:17)
[2021-08-31] MEDS: Gabapentin 300 MG CAPSULE PO SCH (20:18)
[2021-08-31] MEDS ORDERED: Melatonin 3 MG TABLET PO PRN (21:00)
[2021-08-31] MEDS: *HR* HYDROcodone/Acet 5/325 mg TABLET PO PRN (21:34)
[2021-09-01 05:07] LABS: Estimated Average Glucose 131 mg/dl; Hemoglobin A1C 6.2 %
[2021-09-01] MEDS: Gabapentin 300 MG CAPSULE PO SCH ×3 (05:13→21:14)
[2021-09-01] MEDS: *HR* OxyCODONE Immed Rel 5 MG TABLET PO PRN (05:13)
[2021-09-01] MEDS: predniSONE 1 MG TABLET PO SCH (07:52)
[2021-09-01] MEDS: lisinopriL 5 MG TABLET PO SCH (07:53)
[2021-09-01] MEDS: FLUoxetine 20 MG CAPSULE PO SCH (07:53)
[2021-09-01] MEDS: Cholecalciferol (D-3) 1,000 UNIT (25MCG) TABLET PO SCH (07:53)
[2021-09-01] MEDS: *HR* LORazepam 0.5 MG TABLET PO SCH ×3 (07:53→21:14)
[2021-09-01] MEDS: Insulin LISPRO 300 UNITS/3 ML VIAL SUBQ SCH ×3 (09:00→18:18)
[2021-09-01] MEDS: *HR* HYDROcodone/Acet 5/325 mg TABLET PO PRN ×2 (10:34→18:18)
[2021-09-01] MEDS: Melatonin 3 MG TABLET PO SCH (21:14)
[2021-09-01] MEDS: QUEtiapine Fumarate 25 MG TABLET PO SCH (21:14)
[2021-09-02 00:36] LABS: Red Cell Distribution Width 12.3 % (11.5-14.5)
[2021-09-02 00:38] LABS: Basophils % 0.5 %; Eosinophils # 0.1 K/mcL (0.0-0.6); Eosinophils % 1.1 %; Hematocrit 37.3 % (35.3-44.9); Immature Granulocytes % 0.5 % (0-4); Immature Platelets 1.9 % (1.1-6.1); Lymphocytes # 1.8 K/mcL (0.6-4.6); Lymphocytes % 26.3 %; Mean Corpuscular HGB Conc 32.2 g/dL (31.6-35.5); Mean Corpuscular Hemoglobin 28.8 pg (28.0-33.3); Mean Corpuscular Volume 89.7 fL (83.0-100.0); Mean Platelet Volume 9.4 fL (9.4-12.4); Monocytes # 0.5 K/mcL (0.0-1.3); Neutrophils # 4.3 K/mcL (1.6-8.9); Platelet Count 130 K/mcL (140-400); Red Blood Count 4.16 M/mcL (3.82-4.97); Segmented Neutrophils % 63.6 %; White Blood Count 6.7 K/mcL (4.3-11.1)
[2021-09-02 00:45] LABS: INR 1.1
[2021-09-02 00:58] LABS: BUN/Creatinine Ratio 20 (6-26); Blood Urea Nitrogen 14 mg/dL (8-23); Carbon Dioxide 27 mEq/L (23-29); Chloride 103 mEq/L (98-107); Glucose 110 mg/dL (70-105); Osmolality,Calculated 289 (280-300); Potassium 3.6 mEq/L (3.5-5.1); Sodium 139 mEq/L (136-145); eGFR For African Americans > 60 (> 60); eGFR For Non-African Americans > 60 (> 60)
[2021-09-02] MEDS: *HR* HYDROcodone/Acet 5/325 mg TABLET PO PRN (05:25)
[2021-09-02] MEDS: Gabapentin 300 MG CAPSULE PO SCH ×3 (05:25→21:19)
[2021-09-02] MEDS: *HR* LORazepam 0.5 MG TABLET PO SCH ×3 (09:22→21:20)
[2021-09-02] MEDS: Cholecalciferol (D-3) 1,000 UNIT (25MCG) TABLET PO SCH (09:23)
[2021-09-02] MEDS: FLUoxetine 20 MG CAPSULE PO SCH (09:23)
[2021-09-02] MEDS: predniSONE 1 MG TABLET PO SCH (09:23)
[2021-09-02] MEDS: lisinopriL 5 MG TABLET PO SCH (09:23)
[2021-09-02] MEDS: Insulin LISPRO 300 UNITS/3 ML VIAL SUBQ SCH ×3 (09:31→17:46)
[2021-09-02] MEDS ORDERED: *HR* OxyCODONE Immed Rel 5 MG TABLET PO ONE (09:58)
[2021-09-02] MEDS: *HR* OxyCODONE Immed Rel 5 MG TABLET PO PRN ×2 (12:38→21:19)
[2021-09-02] MEDS: Melatonin 3 MG TABLET PO SCH (21:19)
[2021-09-02] MEDS: QUEtiapine Fumarate 25 MG TABLET PO SCH (21:20)
[2021-09-03] MEDS: *HR* OxyCODONE Immed Rel 5 MG TABLET PO PRN (05:52)
[2021-09-03] MEDS: Gabapentin 300 MG CAPSULE PO SCH ×3 (05:53→21:04)
[2021-09-03] MEDS: Insulin LISPRO 300 UNITS/3 ML VIAL SUBQ SCH ×3 (07:34→15:08)
[2021-09-03] MEDS: Cholecalciferol (D-3) 1,000 UNIT (25MCG) TABLET PO SCH (08:26)
[2021-09-03] MEDS: lisinopriL 5 MG TABLET PO SCH (08:27)
[2021-09-03] MEDS: *HR* LORazepam 0.5 MG TABLET PO SCH ×3 (08:28→21:04)
[2021-09-03] MEDS: FLUoxetine 20 MG CAPSULE PO SCH (08:28)
[2021-09-03] MEDS: predniSONE 1 MG TABLET PO SCH (08:28)
[2021-09-03] MEDS: *HR* HYDROcodone/Acet 5/325 mg TABLET PO PRN ×2 (10:55→17:41)
[2021-09-03] MEDS: QUEtiapine Fumarate 25 MG TABLET PO SCH (21:03)
[2021-09-03] MEDS: Melatonin 3 MG TABLET PO SCH (21:04)
[2021-09-04] MEDS: *HR* HYDROcodone/Acet 5/325 mg TABLET PO PRN ×2 (02:45→16:19)
[2021-09-04] MEDS: Gabapentin 300 MG CAPSULE PO SCH ×3 (06:07→21:01)
[2021-09-04] MEDS: predniSONE 1 MG TABLET PO SCH (08:24)
[2021-09-04] MEDS: FLUoxetine 20 MG CAPSULE PO SCH (08:25)
[2021-09-04] MEDS: Cholecalciferol (D-3) 1,000 UNIT (25MCG) TABLET PO SCH (08:25)
[2021-09-04] MEDS: lisinopriL 5 MG TABLET PO SCH (08:25)
[2021-09-04] MEDS: *HR* LORazepam 0.5 MG TABLET PO SCH ×3 (08:25→20:58)
[2021-09-04] MEDS: Insulin LISPRO 300 UNITS/3 ML VIAL SUBQ SCH ×3 (08:26→17:50)
[2021-09-04] MEDS: *HR* OxyCODONE Immed Rel 5 MG TABLET PO PRN ×2 (10:02→18:20)
[2021-09-04] MEDS: Melatonin 3 MG TABLET PO SCH (20:57)
[2021-09-04] MEDS: QUEtiapine Fumarate 25 MG TABLET PO SCH (20:57)
[2021-09-05] MEDS: *HR* OxyCODONE Immed Rel 5 MG TABLET PO PRN ×3 (01:42→13:45)
[2021-09-05] MEDS: Gabapentin 300 MG CAPSULE PO SCH ×2 (06:37→11:48)
[2021-09-05] MEDS: Insulin LISPRO 300 UNITS/3 ML VIAL SUBQ SCH ×2 (07:06→11:48)
[2021-09-05] MEDS: *HR* LORazepam 0.5 MG TABLET PO SCH ×2 (07:18→15:02)
[2021-09-05] MEDS: Cholecalciferol (D-3) 1,000 UNIT (25MCG) TABLET PO SCH (07:18)
[2021-09-05] MEDS: lisinopriL 5 MG TABLET PO SCH (07:18)
[2021-09-05] MEDS: FLUoxetine 20 MG CAPSULE PO SCH (07:19)
[2021-09-05] MEDS: predniSONE 1 MG TABLET PO SCH (07:19)
[2021-09-05] MEDS: *HR* HYDROcodone/Acet 5/325 mg TABLET PO PRN (07:19)
[2021-09-05 11:20] LABS: Influenza A PCR Negative (Negative); Influenza B PCR Negative (Negative); Resp. Syncytial Virus PCR Negative (Negative)
[2021-09-05 11:21] LABS: SARS-CoV-2 by PCR (In House) Negative (Negative)
[2021-09-05 16:28] VITALS: BP 149/65; PULSE 97; TEMP 98.8; O2SAT 95
== END 2021-09-05 16:55 | DRG 563 ==
LOC: EMEROOARM 15:26 → 4WAOSI 15:26 → SUATTDRO 17:01 → 4WAOSI 18:06 → SUATTDRO 09-02 14:07
PROVIDERS: ADMIT Internal Medicine; ATTEND Pharmacist